=== PATIENT | male | born 1980 | race Caucasian/White ===

== ENCOUNTER 2022-09-09 04:35 | Emergency (ER) | payer OTHER, SELFPAY ==
--- NOTE | 2022-09-09 06:34 | EDS_ITS ---
HPI History of Present Illness Chief Complaint: Back Detail of Chief Complaint: Atraumatic back pain. Informant: patient Onset/Context/Timing Onset: Days Context: Gradual Onset Timing: Intermittent Quality: Sharp and Aching Location: Lumbar Current Severity: Mild Maximum Severity: Moderate Worsened by: improves with Movement and Lifting Relieved by: Remaining Still Associated Symptoms Associated Symptoms: Negative for Numbness, Tingling, Radiation to Right Leg, Radiation to Left Leg, Fever, Abdominal Pain, Dysuria, Unable to Ambulate, Unable to Transfer, Urinary Retention, Urinary Incontinence, Constipation or Fecal Incontinence Narrative Narrative: 41-year-old male no seen past medical history. No prior back surgeries. 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 Says he has had back pain on and off for last 1 to 2 weeks. He does not know of a specific injury but says he does a lot of lifting for his job. He does not remember any fall or trauma. Denies any fever. No bowel or bladder incontinence. Since Tuesday he has had increasing pain worse with movement. It is on both lower sides of his back. It does not radiate to his legs. He denies any dysuria or hematuria. Prior similar symptoms: No Recent Illness/Hospitalization: No PFSH PFSH no medical history ROS ROS ED ROS Narrative Denies recent illness. Intermittent low back pain. No abdominal pain. Review of Systems ROS Unobtainable: Denies due to encephalopathy Constitutional Constitutional ED: Denies chills or fever(s) Eyes Eyes: Denies blurry vision ENT ENT ED: Denies ear pain Cardiovascular Cardiovascular: Denies chest pain Respiratory/Chest Respiratory/Chest: Denies dyspnea Gastrointestinal Gastrointestinal: Denies abdominal pain Genitourinary Genitourinary ED: Denies dysuria or hematuria Musculoskeletal Musculoskeletal: Reports back pain; Denies arthralgias or neck pain Integumentary Denies abscess Neurologic Neurologic: Denies headache(s) Psychiatric Psychiatric: Denies anxiety Endocrine Endocrinology: Denies cold intolerance Hematologic/Lymphatic Hematologic/Lymphatic: Denies easy bleeding Allergic/Immunologic Allergic/Immunologic ED: Denies mouth swelling, tongue swelling or urticaria EXAM Physical Exam Narrative Exam Narrative: Well-appearing 41-year-old male. Sitting upright in bed. Vital signs stable and afebrile. H EENT exam unremarkable. Neck nontender no lymphadenopathy. Lungs clear to auscultation bilaterally. Heart regular rate and rhythm no murmur. Chest wall and ribs nontender. Abdomen soft nontender. No peritoneal signs. Moving all 4 extremities. Neurovascular intact. 5 and 5 claims adjuster strength. Dorsi plantarflexion intact. Negative cauda equina. No saddle anesthesia. Normal sensation. Normal strength. Back is some reproducible soft tissue tenderness on the perilumbar region. There is no ecchymosis or bruising. No redness or warmth. No CVA tenderness. No specific bony tenderness. Neurologic exam normal. Const Positive well nourished and well developed; Negative for obese, cachectic, contractures or unkempt General Appearance ED: well developed and NAD; Negative for unkempt, cachectic, contractures or pallor Nutritional Appearance: Negative for cachectic or obese HEENT Reports moist mucous membranes; Denies dry mucous membranes Negative for trauma or tenderness Mouth ED: No dry mucous membranes Mouth: No dry mucous membranes Eyes PERRL and EOMs intact bilaterally General Eye ED: Negative for pale conjunctiva or scleral icterus Neck no lymphadenopathy, supple and no JVD General: Negative for tenderness Thyroid: Negative for other Chest Wall Chest: Negative for other Resp normal respiratory effort and clear to auscultation bilaterally Effort and Inspection: Negative for pain with movement Auscultation: Negative for rales, rhonchi or wheezes Cardio regular rate, regular rhythm, S1 normal heart sound, S2 normal heart sound and no murmurs Rhythm: Negative for abnormal rhythm GI normal to inspection, nondistended, normoactive bowel sounds, soft to palpation, non-tender, non-distended and no masses Inspection: Negative for abdominal distention Auscultation: Negative for hyperactive bowel sounds Palpation: Negative for tender or guarding Back/Spine normal to inspection; Negative for no thoracic nor lumbar tenderness Back/Spine Narrative: Mild reproducible soft tissue tenderness paralumbar region. No signs of trauma. No bruising. No redness or warmth. No bony tenderness or deformity. Normal range of motion. Discomfort with range of motion. General Back: Negative for CVA tenderness Cervical Spine: Negative for cervical spine tenderness and Negative for paracervical muscle tenderness Thoracic Spine / Upper Back: paraspinal muscle tenderness Lumbar Spine / Lower Back: Negative for ROM limited Extremity normal to inspection and no clubbing, cyanosis or edema General Extremety ED: Negative for edema or tenderness General Extremity: Negative for edema Neuro oriented x3 and no sensory deficits noted Sensorium / Orientation: alert; Negative for confused, lethargic or stuporous Sensory Exam: No other Motor Exam: strength 5/5 throughout Psych mental status grossly normal Appearance: Negative for unkempt Attitude: No agitated Mood & Affect: Negative for depressed, sad or tearful Skin no rashes or lesions noted and no wounds General Skin Exam: Negative for jaundice or pallor Lesions: No lesion noted Rashes: No rashes noted Trauma: Negative for abrasion or puncture MDM MDM MDM Narrative Medical decision making narrative: 41-year-old male with low back pain is consistent with myofascial strain and spasm. He does not need any imaging. There is no signs of acute disc. There is no weakness or numbness in his lower extremities. No cauda equina. Patient be treated with ibuprofen. Skelaxin as a muscle relaxant. Off work the next 2 days. Follow-up if not improving. Hot shower, warm bath and massage. Discharge Plan Triage Chief Complaint: Back ED Provider: Javon Rutledge Dx/Rx/DC Orders Clinical Impression: Back strain, Back muscle spasm, Back pain Instructions: ED Back Pain (Acute or Chronic), ED Back Spasm, No Trauma Primary Care Provider: Care Physician,No Primary Referrals: Care Physician,No Primary [Primary Care Provider] - Activity Restrictions/Additional Instructions: We are on downtime. Home-going instructions were written. He was discharged with a written prescription for Skelaxin. Disposition Disposition: Home, Self Care Discharge Date/Time: 09/09/22 05:12
== END 2022-09-09 05:12 | disposition home or self-care (01) ==
LOC: ED 06:32
PROVIDERS: Emergency Provider Emergency Medicine; Visit Provider Emergency Medicine
DX: S39.012A Strain of muscle, fascia and tendon of lower back, initial encounter (principal); M62.830 Muscle spasm of back; X50.0XXA Overexertion from strenuous movement or load, initial encounter
CPT/HCPCS: 99284

== ENCOUNTER 2023-10-03 06:47 | Day surgery (SDC) | payer OTHER, SELFPAY ==
[2023-10-03] VITALS (9 sets, daily range): BP systolic 131–147; BP diastolic 83–98; PULSE 65–84; RESP 14–18; TEMP 36.9–37.2; O2SAT 97–100; BMI 26.6
[2023-10-03] MEDS: Lactated Ringers 1,000 ML 15 ML IV (07:19)
[2023-10-03] MEDS: Oxymetazoline 0.05% 1 SPRAY SPRAY.BTL 3 SPRAY NASAL (07:21)
--- NOTE | 2023-10-03 07:28 | PRE.ANES_ITS ---
ASA Classification* ASA Classification ASA Classification: 2 Assessment & Plan Anesthesia* Anesthesia Assessment Anesthesia Assessment: Discussed sedation and/or anesthesia options, risks, benefits, and alternatives with patient/parents/legal guardian/POA. Questions invited. The patient/parents/legal guardian/POA seems to understand and agrees to proceed with anesthesia plan. Reviewed the physical assessment, medical history, allergy history and patient home medications list prior to surgery/procedure/anesthetic and documented any changes. Performed airway and anesthesia risk assessments. 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 When Was Last Pacemaker Check QUESTION #4 FULL TEXT: You/Your Family Experience fever (hyperthermia) with Anesthesia Last Oral Intake Last Oral intake: Last Oral Intake NPO since 00:00 10/03/23 07:10 Meds taken in AM with sips of water? 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 class: PONV - waiter/waitress second class Female No 09/19/23 09:16 HX of Motion Sickness No 09/19/23 09:16 HX of N/V After Surgery No 09/19/23 09:16 Non-Smoker Yes 09/19/23 09:16 Duration of Surgery greater Yes 09/19/23 09:16 than 60 minutes Number of Risk Factors 2 09/19/23 09:16 PONV Score Moderate Risk 09/19/23 09:16 Height & Weight Height & Weight: Anesthesia: Height & Weight Height 5 ft 9 in 10/03/23 07:10 Weight: 81.647 kg 10/03/23 07:10 Body Mass Index (BMI) 26.6 10/03/23 07:10 Respiratory Assessment Respiratory Assessment - waiter/waitress second class: Respiratory Tract Infection Hx - waiter/waitress second class Hx Respiratory Tract Infection No 09/19/23 09:16 STOP Sleep Apnea STOP Sleep Apnea - waiter/waitress second class: STOP Sleep Apnea - waiter/waitress second class Hx Hypertension No 09/19/23 09:16 Hx Sleep Apnea No 09/19/23 09:16 CPAP BIPAP Do you snore loudly (louder No 09/19/23 09:16 than talking or can be heard Do you often feel tired/ No 09/19/23 09:16 fatigued/ sleepy during daytime? Has anyone observed you stop No 09/19/23 09:16 breathing during sleep? STOP Results Negative 09/19/23 09:16 QUESTION #5 FULL TEXT : Do you snore loudly (louder than talking or can be heard through closed doors)? 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 Specify any problems Hx of Preganancy in last 3 N/A 09/19/23 09:16 Months Nurse Filling Out Transfusion MGRIMARLA 09/19/23 09:16 & Questions: Date: 09/19/23 09/19/23 09:16 Time: 09:18 09/19/23 09:16 Patient unable to answer at this time (ie. confused, unrespo /Reproduction History /Reproductive History - waiter/waitress second class: /Reproductive Hx- waiter/waitress second class Hx Now Gestational Age (in weeks): EDC: Hx Hx Para Hx Section SAB Active Medications Active Medications: Current Medications Generic Name Dose Route Start Last Admin Trade Name Freq PRN Reason Stop Dose Admin Lactated Ringer's 1,000 mls @ 15 mls/hr 10/03/23 07:15 10/03/23 07:19 IV 15 mls/hr .Q48H HOANG Administration Oxymetazoline HCl 3 spray 10/03/23 08:25 10/03/23 07:21 Oxymetazoline 0.05% 1 Hyannis Hyannis.Btl NASAL 10/03/23 08:26 3 spray PREOP ONE Administration PFSH Medical History Non-smoker Home Medications ?Medication ?Instructions ?Recorded ?Last Taken ?Type acetaminophen 500 mg capsule 500 mg PO Q6H PRN pain 09/19/23 10/02/23 History Allergy/AdvReac Type Severity Reaction Status Date / Time No Known Allergies Allergy Verified 10/03/23 07:06 Surgical History History of wisdom tooth extraction Social History Smoking Status: Never smoker Review of Systems (Anesthesia) ROS Narrative System reviewed and no additional complaints, except as documented.
--- NOTE | 2023-10-03 08:25 | NASAL_PTH ---
PATIENT: RIP HOANG LOC: [facility] [place] U#:[id number] AGE/SX: 42/M ROOM: RE10/03/[address]: Dr. Handy Arenas MD : 1980 BED: DIS: 10/03/2023 SPEC #: [id number] RECD: 10/03/23 09:59 STATUS: EDMUNDO MARISA #: [id number] ANA: 10/03/23 08:[address]: Handy Arenas DEPT: SURGICAL PATHOLOGY RECD BY: Estefania Benedict ENTERED: 10/03/23 11:40 SP TYPE: NASAL SPEC OTHR DR: No Primary Care Phys Tissues: A - Ethmoid sinus, NOS B - Ethmoid sinus, NOS C - Nasal septum, NOS Procedures: Decalcification bone/plaque Surgery Specimen Level III Surgery Specimen Level IV HEADER OPERATION: Bilateral total ethmoidectomy, bilateral maxillary antrostromy PRE-OP DIAGNOSIS: Nasal congestion, polyp of nasal cavity, chronic sinusitis TISSUE SUBMITTED: A- Left sinus contents, B- Right sinus contents, C- Septum MICROSCOPIC DIAGNOSIS A. Left sinus contents, curettings: Chronic sinusitis. Fragments of bone, no pathologic change. B. Right sinus contents, curettings: Chronic sinusitis. Fragments of bone, no pathologic change. C. Nasal septum, septoplasty: Fragments of hyaline cartilage and bone. Benign respiratory mucosa. See comment. 10/06/2023 COMMENT C. The findings are consistent with deviated septum. Clinical correlation is suggested. MICROSCOPIC DESCRIPTION Slides are reviewed. GROSS DESCRIPTION A. Received in fixative is one container labeled with the patient's name and designated Left sinus contents. The specimen consists of multiple fragments of hemorrhagic soft tissue that in aggregate measure 4.0 x 4.5 x 0.5 cm. Garbage Truck Driver tissue are submitted in two cassettes. B. Received in fixative is one container labeled with the patient's name and designated Right sinus contents. The specimen consists of multiple fragments of patterson-pink soft tissue mixed with fragments of bone that in aggregate measure 1.5 x 0.8 x 0.2 cm. The specimen is totally submitted in one cassette after decalcification. C. Received in fixative is one container labeled with the patient's name and designated Septum. The specimen consists of multiple fragments of bone and cartilage measuring in aggregate 2.0 x 0.7 x 0.3cm. The entire specimen is submitted in one cassette after decalcification. SJ.mr 10/03/2023 TC:3 CPT:50973 ,[id number]
[2023-10-03] MEDS: Oxymetazoline 0.05% 1 SPRAY SPRAY.BTL 15 SPRAY (08:30)
[2023-10-03] MEDS: Lidocaine 1% /Epi 1:100 (20ml) 20 ML Vial (09:15)
--- NOTE | 2023-10-03 09:23 | DS.PCM_ITS ---
Providers Primary Care Physician: Wilda Primary Care Phys Reason For Visit: Functional Endoscopoic Sinus Surgery, Navigation Medications at Discharge Home Medications acetaminophen 500 mg capsule 500 mg PO Q6H PRN pain 09/19/23 Weight / BMI Weight Weight: 81.647 kg Body Mass Index (BMI) 26.6 D/C Instructions Discharge Diet: No restrictions Additional Activity Instructions: No noseblowing Additional Instructions: Start irrigation 4x/day tomorrow Please Follow Up With: Handy Arenas MD When: next week Meaningful Use Info Meaningful Use Meaningful Use Diagnoses (Choose all that apply): None applicable Ischemic Stroke Statin Dosing Therapy Reference: STATIN DOSE THERAPY REFERENCE: * Patients > 75 years receive moderate or high dose statin therapy. * Patients 75 years or YOUNGER should receive HIGH intensity statin dose unless contraindicated. You will be required to document reason for non-treatment if statin daily dose does not meet guidelines. HIGH DOSE STATIN THERAPY DAILY Atorvastatin > than or = to 40 mg Rosuvastatin > than or = to 20 mg Amlodipine + Atorvastatin > than or = to 2.5/40 mg Ezetimibe + Simvastatin 10/80 mg Simvastatin 80mg Discharge Plan Admission Attending Provider: Handy Arenas Primary Care Provider: Care Physician,No Primary Instructions Print Language: Indonesian Discharge Orders/Prescriptions Prescriptions: No Action acetaminophen 500 mg capsule 500 mg PO Q6H PRN (Reason: pain) Referrals / Follow Up: Care Physician,No Primary [Primary Care Provider] - Disposition Disposition (needs filled in before D/C Order can be placed): Home, Self Care
--- NOTE | 2023-10-03 09:28 | OP.PCM_ITS ---
Report of Operation Date of Procedure: 10/03/23 Pre-Operative Diagnosis: chronic sinusitis with nasal polyps deviated septum Post-Operative Diagnosis: same Surgery/Procedure Performed:: Bilateral total ethmoidectomy Bilateral maxillary antrostomy Septoplasty use of navigation Surgeon: Handy Arenas Type of Anesthesia: General Anesthesiologist: Hardik Zamorano Specimen's removed: yes Estimated Blood Loss (mL): minimal Description of Procedure: The patient was taken to the operating room on 10/03/2023. The patient was placed in the supine position on the operating table. The patient was given sufficient general endotracheal anesthesia. The head of bed was elevated 30 degrees. The navigation system was placed and verified per protocol and found to be accurate. 0 and 30 degrees rigid nasal endoscopes were used throughout the entire case. The middle turbinate uncinate process and polyps were injected with 1% lidocaine with epinephrine bilaterally. The right middle turbinate was medialized with a [place] elevator. Polyp was removed from the middle meatus using a sinus shaver. A ball-tipped sinus seeker was placed into the patient's maxillary sinus. Maxillary antrostomy was created with a backbiter. The uncinate process was taken down using a microdebrider. Next, the ethmoid bulla was opened with a small curette. Anterior and posterior ethmoidectomy were then carried out using curette, sinus shaver and 45 degree Blakesley Luis Manuel forceps. Ethmoid cells were verified for relation to the skull base and orbit prior to being entered with the navigation system. I then placed Afrin pledgets into the sinonasal cavity. Next attention was turned to the left side. The middle turbinate was medialized with a [place] elevator. A large polyp was removed from the middle meatus using a sinus shaver. The maxillary antrostomy was created with a backbiter and widen posteriorly with a Norris-Cut forcep. There was a considerable amount of pus in the maxillary sinus. This was suctioned away. The uncinate process was taken down using a sinus shaver. The ethmoid bulla was opened with a small curette. Anterior posterior ethmoidectomy were then carried out using a sinus shaver curette and Blakesley Luis Manuel forceps. Ethmoid cells were verified for relation to the skull base and orbit prior to being entered with the navigation system. A large septal spur was sticking into the posterior maxillary antrum. I elected to remove this. I made an incision in front of the spur on the septal mucosa with a [place] elevator. I then established a plane on the left and right side of the septal spur with a free times were used to remove the septal spur. The mucosal flaps were then redraped. The maxillary antrum was then free of any type of obstruction. Hemostasis was then achieved using Afrin pledgets. The pledgets were then removed bilaterally and Anthony powder was applied bilaterally for absolute hemostasis. The procedure was then terminated. The patient was then awoken and brought to the recovery room in stable condition blood loss less than 10 cc replacement none. Sponge, needle, instrument count were correct at the end of the procedure.
--- NOTE | 2023-10-03 09:50 | PCM.POST.ANE ---
Anesthesia: Postop Eval I Current Vital Signs Temperature: 98.5 F Pulse Rate: 84 Blood Pressure: 139/98 Respiratory Rate: 18 Pulse Ox: 97 Assessment Airway patent: Yes Spontaneous unlabored respirations: Yes nausea: No Vomiting: No Anesthesia Complication: No Fluid Hydration Crystalloid volume administer (ml): 1,500 Total IV fluid infused: 1,500 Progress Note Anesthesia document: Postop Eval 1 completed: Yes
[2023-10-03] MEDS: Acetaminophen 325 MG Tablet 650 MG PO (10:18)
== END 2023-10-03 10:53 | disposition home or self-care (01) ==
LOC: SDC 06:49 → AC 06:50
PROVIDERS: Referring Provider Otolaryngology; Visit Provider Otolaryngology
PROC: (CPT 30520; principal; 2023-10-03 07:55)
DX: J32.8 Other chronic sinusitis (principal); J33.9 Nasal polyp, unspecified; J34.2 Deviated nasal septum; R09.81 Nasal congestion
CPT/HCPCS: 30520; 31256; 30110; 31255; 88304; 88305; 88311; J7120; J2405